=== PATIENT | female | born 1975 | race Two or more races ===

== ENCOUNTER 2023-11-01 12:05 | Emergency (ER) | payer OTHER ==
[~2023-11-01] VITALS: Ht 170.2 cm; Wt 73.5 kg
[2023-11-01] MEDS ORDERED: FAMOTIDINE/PF 20 MG in 0.9 % SODIUM CHLORIDE 8 ML IV PUSH STA (13:06)
[2023-11-01] MEDS ORDERED: 0.9 % SODIUM CHLORIDE 1,000 ML IV SCH (13:15)
[2023-11-01] MEDS ORDERED: ONDANSETRON HCL 2 MG/ML VIAL IV ONE (13:15)
[2023-11-01] MEDS ORDERED: KETOROLAC TROMETHAMINE 30 MG VIAL IV ONE (13:15)
[2023-11-01] MEDS ORDERED: KETOROLAC TROMETHAMINE 30 MG VIAL ONE (13:43)
[2023-11-01] MEDS ORDERED: ONDANSETRON HCL 2 MG/ML VIAL ONE (13:43)
[2023-11-01] MEDS ORDERED: FAMOTIDINE/PF 20 MG/2 ML VIAL ONE (13:44)
[2023-11-01 14:30] LABS: HEMATOCRIT 35.8 % (36.0-45.00); MEAN CELL VOLUME 84.1 fL (80.00-100.00); MEAN CORPUSCULAR HEMOGLOBIN 28.2 pg (27.00-32.0); MEAN CORPUSCULAR HGB CONC 33.5 g/dl (32.0-36.0); PLATELET COUNT 228 K/uL (150-450); RED BLOOD COUNT 4.26 M/uL (4.00-6.00); RED CELL DISTRIBUTION WIDTH 15.8 % (11.5-14.5)
[2023-11-01 15:15] LABS: ALBUMIN 3.7 gm/dL (3.4-5.0); BILIRUBIN TOTAL 0.48 mg/dL (0.3-1.2); CALCIUM 9.2 mg/dL (8.5-10.1); CREATININE SERUM 0.76 mg/dL (0.55-1.02); GFR 81.57; GLOBULINA 4.4 G/DL (2.4-3.5); POTASSIUM 3.68 mEq/L (3.5-5.1); TOTAL PROTEIN 8.1 gm/dL (6.4-8.2)
[2023-11-01] MEDS ORDERED: BARIUM SULFATE 450 ML ORAL.SUSP PO ONE (15:36)
[2023-11-01 16:26] LABS: URINE APPEARANCE Cloudy; URINE BILIRRUBIN Negative (NEGATIVE); URINE BLOOD Negative; URINE COLOR Yellow; URINE GLUCOSE Negative (NEGATIVE); URINE LEUKOCYTE Small; URINE NITRATE Negative; URINE PROTEIN Negative (NEGATIVE)
[2023-11-01 16:32] LABS: URINE EPITHELIAL CELLS 56.8 uL (0.0-38.8); URINE RBC 8.2 uL (0.0-20.8); URINE WBC 34.7 uL (0.0-23.2)
[2023-11-01 16:53] LABS: URINE BACTERIA > 9821.5 uL (0.0-1933)
== END 2023-11-01 20:20 | disposition home or self-care (01) ==
LOC: ER 12:06
PROVIDERS: General Practice
DX: R10.9 Unspecified abdominal pain (principal); Z88.8 Allergy status to other drugs, medicaments and biological substances; Z85.038 Personal history of other malignant neoplasm of large intestine; K59.00 Constipation, unspecified